=== PATIENT | female | born 1975 | race Caucasian/White ===

== ENCOUNTER 2020-12-26 15:15 | Outpatient (CLI) | payer SELFPAY | END 2020-12-26 15:16 | disposition home or self-care (01) | LOC: LAB 15:15 | DX: E03.9 Hypothyroidism, unspecified (principal) | CPT/HCPCS: 36415; 84443 ==

== ENCOUNTER 2020-12-29 17:18 | Outpatient (CLI) | payer SELFPAY | END 2020-12-29 17:19 | disposition home or self-care (01) | LOC: LAB.S 17:18 | DX: E03.9 Hypothyroidism, unspecified (principal) | CPT/HCPCS: 36415; 84443 ==